=== PATIENT | male | born 1955 | race Caucasian/White ===

== ENCOUNTER 2017-11-15 14:56 | Inpatient (IN) | payer SELFPAY ==
[~2017-11-15] VITALS: Ht 185.4 cm; Wt 62.3 kg
[2017-11-15 15:38] LABS: White Blood Cell 4.2 10^3/uL (4.4-10.8)
[2017-11-15 15:40] LABS: Hematocrit 29.4 % (41.0-53.0); Mean Corpuscular Hemoglobin 26.1 pg (28.0-32.0); Mean Corpuscular Hgb Conc. 34.2 g/dL (32.0-36.0); Mean Corpuscular Volume 76.4 fL (80.0-100.0); Platelet Count (auto) 373 10^3/uL (140-450); Red Blood Cells 3.85 10^6/uL (4.5-5.90); Red Cell Distribution Width 16.5 % (11.8-14.3)
[2017-11-15 15:41] LABS: Basophils % (manual) 0 (0.0-2.0); Blast Cells 0; Eosinophils % (manual) 0 (0-7); Metamyelocytes % 0; Myelocytes % 0; Promyelocytes % 0
[2017-11-15 15:55] LABS: Albumin 3.1 g/dL (3.4-5.0); BUN/Creatinine Ratio 25.6; Bilirubin, Total 0.8 mg/dL (0.2-1.0); Calcium 10.1 mg/dL (8.5-10.1); Magnesium 2.5 mg/dL (1.6-2.6); Potassium 3.1 mmol/L (3.5-5.1); Total Protein 6.9 g/dL (6.4-8.2)
[2017-11-15 15:59] LABS: Lactic Acid w/Reflex 2.4 mmol/L (0.4-2.0)
[2017-11-15] MEDS ORDERED: SODIUM CHLORIDE 0.9% 1,000 ML IVB ONE (16:49)
[2017-11-15] MEDS ORDERED: ONDANSETRON HCL 4 MG/2 ML VIAL IV ONE (17:00)
[2017-11-15 17:02] LABS: Band Neutrophils % (manual) 3; Lymphocytes % (manual) 25 (10.0-50.0); Monocytes % (manual) 14 (0-12); Reactive Lymphocytes 4
[2017-11-15 17:13] LABS: Amylase 29 U/L (25-115); Lipase 143 U/L (73-393)
[2017-11-15 17:45] LABS: INR 1.43 (0.9-1.15)
[2017-11-15] MEDS: SODIUM CHLORIDE 0.9% 1,000 ML IV SCH (18:33)
[2017-11-15] MEDS ORDERED: HYDROcodone-ACET 5/325MG TAB PO PRN (18:45)
[2017-11-15] MEDS ORDERED: PROMETHAZINE HCL 25 MG/ML 1ML IV PRN (18:45)
[2017-11-15] MEDS ORDERED: cefTRIAXone 1GM/10ml IVPUSH 10 ML IV ONE (18:45)
[2017-11-15] MEDS ORDERED: MORPHINE SULF INJ 2 MG/ML SYRINGE 1ML IV PRN ×2 (18:45)
[2017-11-15] MEDS ORDERED: NITROGLYCERIN 0.4 MG SL TAB SL PRN (18:45)
[2017-11-15] MEDS ORDERED: LORazepam 0.5 MG TAB PO PRN (18:45)
[2017-11-15] MEDS: PANTOPRAZOLE 40 MG TAB PO SCH (18:46)
[2017-11-15] MEDS ORDERED: IOHEXOL 300 MG/ML 100ML BOTTLE IJ ONE (18:46)
[2017-11-15 20:20] VITALS: BP 124/79
[2017-11-15 21:10] VITALS: BP 124/79
[2017-11-15] MEDS: ACETAMINOPHEN 500 MG TAB PO PRN (22:37)
[2017-11-16] MEDS: SODIUM CHLORIDE 0.9% 1,000 ML IV SCH ×3 (04:33→13:23)
[2017-11-16] MEDS: ACETAMINOPHEN 500 MG TAB PO PRN ×2 (04:47→20:55)
[2017-11-16 05:09] VITALS: BP 110/73
[2017-11-16 05:58] LABS: Urine Bacteria NONE SEEN /hpf (None Seen); Urine Blood Negative /uL (Negative); Urine WBC 8 /hpf (0 - 3)
[2017-11-16 06:02] LABS: Urine Specific Gravity > 1.050 (1.001-1.035)
[2017-11-16 07:11] LABS: White Blood Cell 5.9 10^3/uL (4.4-10.8)
[2017-11-16 07:13] LABS: Albumin 2.7 g/dL (3.4-5.0); BUN/Creatinine Ratio 27.5; Bilirubin, Total 0.7 mg/dL (0.2-1.0); Calcium 8.9 mg/dL (8.5-10.1); Total Protein 5.7 g/dL (6.4-8.2)
[2017-11-16 07:14] LABS: Hematocrit 25.9 % (41.0-53.0); Hemoglobin 8.6 g/dL (13.5-17.5); Mean Corpuscular Hemoglobin 25.4 pg (28.0-32.0); Mean Corpuscular Hgb Conc. 33.3 g/dL (32.0-36.0); Mean Corpuscular Volume 76.5 fL (80.0-100.0); Platelet Count (auto) 302 10^3/uL (140-450); Red Blood Cells 3.38 10^6/uL (4.5-5.90); Red Cell Distribution Width 16.7 % (11.8-14.3)
[2017-11-16 07:18] LABS: Potassium 2.7 mmol/L (3.5-5.1)
[2017-11-16 07:21] LABS: Band Neutrophils % (manual) 0; Basophils % (manual) 0 (0.0-2.0); Blast Cells 0; Metamyelocytes % 0; Myelocytes % 0; Promyelocytes % 0; Reactive Lymphocytes 0
[2017-11-16] MEDS ORDERED: POTASSIUM CHL 20 Meq TABLET PO ONE (07:45)
[2017-11-16 08:23] LABS: Eosinophils % (manual) 1 (0-7); Lymphocytes % (manual) 26 (10.0-50.0); Monocytes % (manual) 18 (0-12)
[2017-11-16 09:00] VITALS: BP 115/63
[2017-11-16] MEDS ORDERED: cefTRIAXone 1GM/10ml IVPUSH 10 ML IV SCH (09:00)
[2017-11-16] MEDS: PANTOPRAZOLE 40 MG TAB PO SCH ×2 (09:26→13:24)
[2017-11-16 13:00] VITALS: BP_SYST 120; BP_SYST 131; BP_DIAS 68; BP_DIAS 73
[2017-11-16 13:50] LABS: % Iron Saturation 10.3 % (20-55)
[2017-11-16 17:00] VITALS: BP 117/71
[2017-11-16 20:35] LABS: Alcohol, Urine < 3.0 mg/dL (0-5); Amphetamine Screen, Urine NEGATIVE (NEGATIVE); Barbiturate Scree,Urine NEGATIVE (NEGATIVE); Benzodiazephine Screen, Urine NEGATIVE (NEGATIVE); Cannabinoid Screen, Urine POSITIVE (NEGATIVE); Cocaine Screen, Urine NEGATIVE (NEGATIVE); Opiate Scree,Urine NEGATIVE (NEGATIVE); Phencyclidine Screen, Urine NEGATIVE (NEGATIVE)
[2017-11-16 21:45] VITALS: BP 121/71
[2017-11-17 04:35] VITALS: BP 124/76
[2017-11-17 06:39] LABS: Mean Corpuscular Hemoglobin 26.3 pg (28.0-32.0); Mean Corpuscular Hgb Conc. 34.8 g/dL (32.0-36.0); Mean Corpuscular Volume 75.7 fL (80.0-100.0); Platelet Count (auto) 263 10^3/uL (140-450); Red Blood Cells 3.43 10^6/uL (4.5-5.90); White Blood Cell 5.5 10^3/uL (4.4-10.8)
[2017-11-17 06:48] LABS: BUN/Creatinine Ratio 27.5; Calcium 8.8 mg/dL (8.5-10.1); Potassium 3.6 mmol/L (3.5-5.1)
[2017-11-17 06:56] LABS: Basophils % (manual) 0 (0.0-2.0); Blast Cells 0; Metamyelocytes % 0; Myelocytes % 0; Promyelocytes % 0; Reactive Lymphocytes 0
[2017-11-17 08:00] VITALS: BP 126/70
[2017-11-17 08:00] LABS: Band Neutrophils % (manual) 1; Eosinophils % (manual) 1 (0-7); Lymphocytes % (manual) 8 (10.0-50.0); Monocytes % (manual) 24 (0-12)
[2017-11-17 09:00] VITALS: BP 126/70
[2017-11-17] MEDS: ACETAMINOPHEN 500 MG TAB PO PRN (10:20)
[2017-11-17] MEDS: PANTOPRAZOLE 40 MG TAB PO SCH (10:20)
[2017-11-17 13:00] VITALS: BP 116/72
[2017-11-17 17:00] VITALS: BP 120/72
[2017-11-17 22:00] VITALS: BP 110/64
[2017-11-18] VITALS (7 sets, daily range): BP systolic 101–135; BP diastolic 63–76
[2017-11-18] MEDS: PANTOPRAZOLE 40 MG TAB PO SCH (11:06)
[2017-11-19 05:00] VITALS: BP 109/68
[2017-11-19 08:00] VITALS: BP 116/69
[2017-11-19 08:18] VITALS: BP 112/72
[2017-11-19] MEDS ORDERED: MORPHINE SULF INJ 2 MG/ML SYRINGE 1ML IV PRN (10:45)
[2017-11-19] MEDS ORDERED: HYDROcodone-ACET 5/325MG TAB PO PRN (10:45)
[2017-11-19] MEDS: PANTOPRAZOLE 40 MG TAB PO SCH (10:51)
[2017-11-19 12:34] VITALS: BP 112/68
[2017-11-19 17:17] VITALS: BP 111/76
[2017-11-19 22:00] VITALS: BP 109/68
[2017-11-20 05:00] VITALS: BP 123/73
[2017-11-20 05:58] LABS: Hemoglobin 8.2 g/dL (13.5-17.5)
[2017-11-20 06:00] LABS: Hematocrit 22.9 % (41.0-53.0)
[2017-11-20 06:13] LABS: BUN/Creatinine Ratio 12.5; Calcium 8.2 mg/dL (8.5-10.1); Potassium 3.1 mmol/L (3.5-5.1)
[2017-11-20 07:54] VITALS: BP 99/54
[2017-11-20] MEDS ORDERED: LIDOCAINE 2% (LOCAL ANESTH.) PF 5ml SDV ONE (09:05)
[2017-11-20 12:00] VITALS: BP 109/72
[2017-11-20] MEDS ORDERED: MIDAZOLAM HCL 1MG/1ML-2 ML VIAL ONE (12:58)
[2017-11-20] MEDS ORDERED: fentaNYL CITRATE 100 MCG/2 ML VL ONE (12:58)
[2017-11-20] MEDS ORDERED: POTASSIUM CHL 20 Meq TABLET PO ONE (14:30)
[2017-11-20 16:15] VITALS: BP 111/69
[2017-11-20] MEDS ORDERED: IOHEXOL 300 MG/ML 100ML BOTTLE IJ ONE (18:43)
[2017-11-20 19:28] LABS: % Iron Saturation 12.7 % (20-55)
[2017-11-20 19:40] LABS: Folate (Folic Acid) 3.47 ng/mL (5.38-24)
[2017-11-20] MEDS: TEMAZEPAM 15 MG CAP PO PRN (21:26)
[2017-11-20 22:00] VITALS: BP 115/73
[2017-11-21] VITALS (14 sets, daily range): BP systolic 100–132; BP diastolic 56–72
[2017-11-21 05:42] LABS: Hematocrit 22.1 % (41.0-53.0); Hemoglobin 7.8 g/dL (13.5-17.5)
[2017-11-21] MEDS: PANTOPRAZOLE 40 MG TAB PO SCH (10:05)
[2017-11-21] MEDS ORDERED: SODIUM FERR GLUC 62.5MG/5ML 125 MG in SODIUM CHL 0.9% 100 ML IV SCH (12:00)
[2017-11-21] MEDS: TEMAZEPAM 15 MG CAP PO PRN (21:45)
[2017-11-22] VITALS: BP 112/58
[2017-11-22 05:00] VITALS: BP 113/73
[2017-11-22 06:23] LABS: Hematocrit 28.4 % (41.0-53.0); Mean Corpuscular Hemoglobin 27.1 pg (28.0-32.0); Mean Corpuscular Hgb Conc. 35.3 g/dL (32.0-36.0); Mean Corpuscular Volume 76.9 fL (80.0-100.0); Platelet Count (auto) 245 10^3/uL (140-450); Red Blood Cells 3.69 10^6/uL (4.5-5.90); Red Cell Distribution Width 18.3 % (11.8-14.3); White Blood Cell 4.4 10^3/uL (4.4-10.8)
[2017-11-22 06:33] LABS: INR 1.07 (0.9-1.15); Prothrombin Time 11.4 sec (9.27-12.13)
[2017-11-22 06:43] LABS: Calcium 8.5 mg/dL (8.5-10.1); Potassium 3.8 mmol/L (3.5-5.1)
[2017-11-22 06:53] LABS: Band Neutrophils % (manual) 0; Basophils % (manual) 0 (0.0-2.0); Blast Cells 0; Eosinophils % (manual) 0 (0-7); Metamyelocytes % 0; Myelocytes % 0; Promyelocytes % 0; Reactive Lymphocytes 0
[2017-11-22 07:39] LABS: Lymphocytes % (manual) 25 (10.0-50.0); Monocytes % (manual) 24 (0-12)
[2017-11-22 08:00] VITALS: BP 116/76
[2017-11-22] MEDS: PANTOPRAZOLE 40 MG TAB PO SCH (10:00)
[2017-11-22] MEDS ORDERED: FER325T PO (11:09)
[2017-11-22] MEDS ORDERED: MIRT15TA PO (11:13)
[2017-11-22] MEDS ORDERED: HYDROcodone-ACET 5/325MG TAB PO PRN (11:30)
[2017-11-22 12:30] VITALS: BP 108/66
[2017-11-22 16:42] VITALS: BP 111/72
[2017-11-22] MEDS: FERROUS SULFATE 325 MG TAB PO SCH (18:00)
[2017-11-22 22:00] VITALS: BP 108/67
[2017-11-22] MEDS: TEMAZEPAM 15 MG CAP PO PRN (22:17)
[2017-11-22] MEDS: MIRTAZAPINE 30 MG TAB PO SCH (22:17)
[2017-11-23 05:00] VITALS: BP 114/70
[2017-11-23 06:26] LABS: Hematocrit 31.8 % (41.0-53.0); Hemoglobin 10.9 g/dL (13.5-17.5)
[2017-11-23] MEDS: FERROUS SULFATE 325 MG TAB PO SCH ×2 (07:58→17:36)
[2017-11-23 09:00] VITALS: BP 109/71
[2017-11-23] MEDS ORDERED: TEMAZEPAM 15 MG CAP PO PRN (10:00)
[2017-11-23] MEDS ORDERED: LORazepam 0.5 MG TAB PO PRN (10:00)
[2017-11-23] MEDS: predniSONE 20 MG TAB PO SCH (10:11)
[2017-11-23] MEDS: FAMOTIDINE 20 MG TAB PO SCH (10:11)
[2017-11-23] MEDS: PANTOPRAZOLE 40 MG TAB PO SCH (10:11)
[2017-11-23 10:22] LABS: Hepatitis B Surface Antibody Negative
[2017-11-23] MEDS: Ensure Enlive Chocolate 8oz Bottle PO SCH ×2 (12:00→18:00)
[2017-11-23 12:56] LABS: Hepatitis B Surface Antigen Negative (Negative); Hepatitis C Antibody Negative (Negative)
[2017-11-23 13:00] VITALS: BP 106/63
[2017-11-23 17:00] VITALS: BP 101/63
[2017-11-23] MEDS: MIRTAZAPINE 30 MG TAB PO SCH (21:40)
[2017-11-23 22:00] VITALS: BP 99/55
[2017-11-24 05:00] VITALS: BP 115/72
[2017-11-24] MEDS: FERROUS SULFATE 325 MG TAB PO SCH ×2 (08:15→18:26)
[2017-11-24] MEDS: Ensure Enlive Chocolate 8oz Bottle PO SCH ×3 (08:15→18:00)
[2017-11-24 08:28] VITALS: BP 115/70
[2017-11-24] MEDS: predniSONE 20 MG TAB PO SCH (10:32)
[2017-11-24] MEDS: FAMOTIDINE 20 MG TAB PO SCH (10:32)
[2017-11-24] MEDS: PANTOPRAZOLE 40 MG TAB PO SCH (10:33)
[2017-11-24 12:54] VITALS: BP 107/57
[2017-11-24 17:19] VITALS: BP 99/56
[2017-11-24] MEDS: MIRTAZAPINE 30 MG TAB PO SCH (21:37)
[2017-11-24 22:00] VITALS: BP 111/70
[2017-11-25 05:00] VITALS: BP 113/70
[2017-11-25 09:00] VITALS: BP 105/70
[2017-11-25] MEDS: FERROUS SULFATE 325 MG TAB PO SCH ×2 (09:15→17:59)
[2017-11-25] MEDS: FAMOTIDINE 20 MG TAB PO SCH (09:15)
[2017-11-25] MEDS: predniSONE 20 MG TAB PO SCH (09:15)
[2017-11-25] MEDS: PANTOPRAZOLE 40 MG TAB PO SCH (09:16)
[2017-11-25] MEDS: Ensure Enlive Chocolate 8oz Bottle PO SCH ×3 (12:00→21:21)
[2017-11-25 13:00] VITALS: BP 99/59
[2017-11-25 17:05] VITALS: BP 104/65
[2017-11-25] MEDS: MIRTAZAPINE 30 MG TAB PO SCH (21:21)
[2017-11-25 22:23] VITALS: BP 101/59
[2017-11-26 05:07] VITALS: BP 108/72
[2017-11-26] MEDS: Ensure Enlive Chocolate 8oz Bottle PO SCH ×3 (08:42→18:00)
[2017-11-26] MEDS: FAMOTIDINE 20 MG TAB PO SCH (08:42)
[2017-11-26] MEDS: FERROUS SULFATE 325 MG TAB PO SCH ×2 (08:42→17:54)
[2017-11-26] MEDS: predniSONE 20 MG TAB PO SCH (08:42)
[2017-11-26] MEDS: PANTOPRAZOLE 40 MG TAB PO SCH (08:43)
[2017-11-26 09:00] VITALS: BP 119/69
[2017-11-26 12:30] VITALS: BP 105/64
[2017-11-26 17:15] VITALS: BP 100/74
[2017-11-26 20:00] VITALS: BP 111/70
[2017-11-26 22:00] VITALS: BP 111/70
[2017-11-26] MEDS: MIRTAZAPINE 30 MG TAB PO SCH (22:05)
[2017-11-27 05:00] VITALS: BP 111/70
[2017-11-27 08:00] VITALS: BP 121/74
[2017-11-27] MEDS: Ensure Enlive Chocolate 8oz Bottle PO SCH ×2 (09:27→12:58)
[2017-11-27] MEDS: FAMOTIDINE 20 MG TAB PO SCH (09:33)
[2017-11-27] MEDS: FERROUS SULFATE 325 MG TAB PO SCH (09:35)
[2017-11-27] MEDS: ACETAMINOPHEN 500 MG TAB PO PRN (09:35)
[2017-11-27] MEDS: PANTOPRAZOLE 40 MG TAB PO SCH (09:35)
[2017-11-27] MEDS: predniSONE 20 MG TAB PO SCH (09:35)
[2017-11-27 11:37] VITALS: BP 121/74
[2017-11-27 12:00] VITALS: BP 101/58
== END 2017-11-27 14:20 | disposition home or self-care (01) | DRG 841 ==
LOC: ER 14:56 → EDBD 14:56 → TELE-EAST 14:57 → EAST 11-27 00:09
PROVIDERS: ADMIT Internal Medicine; ATTEND Internal Medicine Pulmonary Disease
PROC: 0WBH3ZX Excision of Retroperitoneum, Percutaneous Approach, Diagnostic (ICD-10-PCS; principal; 2017-11-20)
PROC: 30233N1 Transfusion of Nonautologous Red Blood Cells into Peripheral Vein, Percutaneous Approach (ICD-10-PCS; 2017-11-21)
DX: C83.33 Diffuse large B-cell lymphoma, intra-abdominal lymph nodes (principal); E87.0 Hyperosmolality and hypernatremia; Z68.1 Body mass index [BMI] 19.9 or less, adult; E44.0 Moderate protein-calorie malnutrition; N28.89 Other specified disorders of kidney and ureter; D18.00 Hemangioma unspecified site; C61 Malignant neoplasm of prostate; D50.9 Iron deficiency anemia, unspecified; E03.9 Hypothyroidism, unspecified; E87.6 Hypokalemia; F32.9 Major depressive disorder, single episode, unspecified; F41.9 Anxiety disorder, unspecified; J44.9 Chronic obstructive pulmonary disease, unspecified; K76.89 Other specified diseases of liver; N21.0 Calculus in bladder; N40.0 Benign prostatic hyperplasia without lower urinary tract symptoms; I08.3 Combined rheumatic disorders of mitral, aortic and tricuspid valves; R19.00 Intra-abdominal and pelvic swelling, mass and lump, unspecified site; F15.10 Other stimulant abuse, uncomplicated; Z59.0 Homelessness; Z82.49 Family history of ischemic heart disease and other diseases of the circulatory system; Z85.46 Personal history of malignant neoplasm of prostate; Z90.89 Acquired absence of other organs
CPT/HCPCS: 10022; 36415; 71045; 71260; 74176; 74177; 77012; 80048; 80053; 80307; 81001; 81479; 82150; 82270; 82607; 82746; 83540; 83550; 83605; 83690; 83735; 84132; 84154; 84443; 85007; 85014; 85018; 85027; 85610; 85730; 86706; 86803; 86850; 86900; 86901; 86920; 87040; 87086; 87340; 93005; 93306; 94761; 96361; 96374; J0696; J2001; J2250